=== PATIENT | female | born 1990 | race Caucasian/White ===

== ENCOUNTER 2020-09-05 10:39 | Outpatient (RCR) | payer OTHER | END 2020-12-04 | disposition home or self-care (01) | LOC: WSOH | DX: S60.022A Contusion of left index finger without damage to nail, initial encounter (principal); D36.7 Benign neoplasm of other specified sites; F31.9 Bipolar disorder, unspecified; G47.00 Insomnia, unspecified; Z98.890 Other specified postprocedural states; Y99.0 Civilian activity done for income or pay ==

== ENCOUNTER 2022-01-27 01:46 | Emergency (ER) | payer SELFPAY ==
[~2022-01-27] VITALS: Ht 165.1 cm; Wt 113.6 kg
[2022-01-27 02:06] VITALS: TEMP 98
[2022-01-27 03:18] LABS: COLLECTION METHOD CLEAN CATCH
[2022-01-27 03:23] LABS: MUCOUS Present (NOT PRESENT); PH 7 (5-8); SQUAMOUS EPITHELIAL 0-2 /hpf (0-10); URINE APPEARANCE Clear (CLEAR/HAZY); URINE BACTERIA None Seen /hpf (NONE SEEN); URINE BILIRUBIN Negative (NEGATIVE); URINE BLOOD Negative (NEGATIVE); URINE COLOR Yellow (YELLOW); URINE GLUCOSE Negative (NEGATIVE); URINE KETONE Negative (NEGATIVE); URINE LEUKOCYTE ESTERASE Negative (NEGATIVE); URINE NITRATE Negative (NEGATIVE); URINE PROTEIN(semi-quant) Negative (NEGATIVE); URINE RBC 0-2 /hpf (0-2); URINE UROBILINOGEN Negative (NEGATIVE)
[2022-01-27] MEDS ORDERED: FLEXERIL 1010 MG/TAB PO (03:37)
[2022-01-27] MEDS ORDERED: NAPROSYN500 MG PO (03:37)
[2022-01-27 03:53] VITALS: BP 128/93; PULSE 87
== END 2022-01-27 03:53 | disposition home or self-care (01) ==
LOC: COL.ER 01:46
PROVIDERS: Emergency Medicine
DX: M54.50 Low back pain, unspecified (principal); Z91.040 Latex allergy status

== ENCOUNTER 2022-03-21 07:15 | Emergency (ER) | payer SELFPAY ==
[~2022-03-21] VITALS: Ht 165.1 cm; Wt 118.2 kg
[~2022-03-21 07:15] MED LIST: FLEXERIL 1010 MG/TAB PO; NAPROSYN500 MG PO
[2022-03-21 07:24] VITALS: TEMP 98.1
[2022-03-21 08:07] VITALS: BP 145/94; PULSE 96
== END 2022-03-21 08:07 | disposition home or self-care (01) ==
LOC: COL.ER 07:15
DX: S61.012A Laceration without foreign body of left thumb without damage to nail, initial encounter (principal); Z91.040 Latex allergy status; Z23 Encounter for immunization; W26.8XXA Contact with other sharp object(s), not elsewhere classified, initial encounter; Y92.59 Other trade areas as the place of occurrence of the external cause; Y99.0 Civilian activity done for income or pay

== ENCOUNTER 2022-03-24 06:47 | Emergency (ER) | payer SELFPAY ==
[~2022-03-24] VITALS: Ht 165.1 cm; Wt 118.2 kg
[2022-03-24 07:14] VITALS: BP 149/93; TEMP 98.1
[2022-03-24] MEDS ORDERED: BACTRIM DS 8001 TAB PO (07:30)
[2022-03-24 07:42] VITALS: PULSE 85
== END 2022-03-24 07:42 | disposition home or self-care (01) ==
LOC: COL.ER 06:47 → EDSTATUS 07:21 → COL.ER 07:42
DX: Z48.00 Encounter for change or removal of nonsurgical wound dressing (principal); Z88.0 Allergy status to penicillin; Z91.040 Latex allergy status